=== PATIENT | male | born 1960 | race Caucasian/White ===

== ENCOUNTER 2025-05-13 10:46 | Emergency (ER) | payer BC, SELFPAY ==
[2025-05-13 10:50] VITALS: BP 150/78; PULSE 71; RESP 12; TEMP 36.9; O2SAT 98
--- NOTE | 2025-05-13 11:15 | DI.RAD_ITS ---
Exam(s) XR RIBS RT PA CHEST 3V EXAM: XR RIBS RT PA CHEST 3V CLINICAL HISTORY: R. lower rib injury TECHNIQUE: 2D digital imaging was performed.Five images were obtained. COMPARISON: No exams were available for comparison FINDINGS: MEDIASTINUM: Normal. HEART: Normal. PULMONARY VASCULATURE: Normal. LUNGS: Clear. PLEURAL SPACE: No pleural effusion or pneumothorax. BONE:Normal. RIGHT RIBS: There is an oblique lucency through the posterior aspect of the 11th rib (series 3, image 1). It is seen on the single image. Nondisplaced fracture cannot be excluded. OTHER FINDINGS:Normal. IMPRESSION: 1. No acute pulmonary findings. 2. Question of a nondisplaced fracture involving the posterior aspect of the right 11th rib. 3. No pneumothorax or pleural effusion is present. DATA REPOSITORY: RADIATION DOSE DELIVERED:
--- NOTE | 2025-05-13 11:25 | W.ED.GENAD ---
Discharge Plan Disposition Patient Disposition: Home Condition: Stable Discharge Details Clinical Impression: Fracture of right eleventh rib Primary Care Provider: Val,Local ED Provider: Fern Haque Home Meds and New Rx's Prescriptions: New oxycodone 5 mg tablet 5 mg PO Q8H PRNQty: 10 0RF No Action atorvastatin [Lipitor] 40 mg tablet 40 mg PO DAILY varenicline tartrate [Chantix Continuing Month Box] 1 mg tablet 1 mg PO BID Discharge Instructions Instructions: Rib Fracture or Bruised Rib ED Additional Instructions: You were seen in the emergency department today for evaluation of a rib injury and were found to have a nondisplaced hairline fracture of your right 11th rib. In our department you had a full physical examination performed, and had x-ray imaging that was otherwise reassuring with no evidence of displaced rib fractures or injury to your lung. We discussed use of your incentive spirometer to help open up your lungs fully, as well as using a pillow to brace or splint your chest during coughing, laughing, or sneezing. Please use therapeutic dosing of Tylenol (acetaminophen) & Advil (ibuprofen) in an alternating fashion as follows: Take 1000mg of Tylenol every 6 hours without missing doses- that is 4 times per day. [place] in between the Tylenol doses, take 600mg of Advil also on a 6 hour schedule, that is also 4 times per day. With this strategy, you will be taking something for fever/pain as often as every 3 hours. The daily maximum dosing of Tylenol is 4000mg, and the daily maximum dosing of Advil is 2400mg. Please note that some common cold medications & prescription pain medications may contain acetaminophen and you need to read OTC drug labels and factor that in to maximum daily doses. You should purchase lidocaine patches [id number] and use them in the area of maximal pain. You wear them for 12 hours at a time, and then take them off for 12 hours to allow the skin to rest. I have also provided you with a short prescription of stronger pain medications to use for severe pain that does not respond to all of the medications noted above. Please use caution when driving or operating machinery as this medication can cause drowsiness. Please follow-up with your primary care provider in the next few days to discuss this visit and any symptoms that change, worsen, or persist. Thank you for allowing us to be part of your care. Stand Alone Forms: Work Release Discharge Data Discharge Date/Time-TO BE ENTERED AT DEPARTURE: 05/13/25 13:21 HPI General Mode of arrival: ambulatory. Date/Time Provider Initiated Documentation: 05/13/25 10:53. Limitations to Documentation: no limitations. Information obtained by: patient, family and old records reviewed. HPI Narrative: This is a 64-year-old male patient without significant past medical history presenting for evaluation of right rib injury. The patient was in his normal state of health yesterday, had gotten his son a gift and the son gave him a big bear hug, lifting him off the ground. He felt a pop in his right sided chest wall, and immediately had pain in that area. It radiates around towards his back, and is worse with cough, laughing, and deep breath. He feels most comfortable standing and movements, laying down or putting pressure on it makes it worse. Prior to this event he was in his normal state of health. He took Tylenol and ibuprofen last night, nothing today. Related Data Home Medications ?Medication ?Instructions ?Recorded ?Confirmed atorvastatin 40 mg tablet (Lipitor) 40 mg PO DAILY 05/13/25 05/13/25 oxycodone 5 mg tablet 5 mg PO Q8H PRN #10 tabs 05/13/25 varenicline tartrate 1 mg tablet 1 mg PO BID 05/13/25 05/13/25 (Chantix Continuing Month Box) Previous Rx's ?Medication ?Instructions ?Recorded oxycodone 5 mg tablet 5 mg PO Q8H PRN #10 tabs 05/13/25 Allergies Allergy/AdvReac Type Severity Reaction Status Date / Time Sulfa (Sulfonamide Allergy Intermediate Unknown Verified 05/13/25 10:53 Antibiotics) General Stated Complaint: Chest/Rib NIRU: 4 Exam Narrative Exam Narrative: Gen: Awake and alert, in no apparent distress HEENT: Non-icteric sclera Neck: Supple Lungs: No apparent respiratory distress, normal respiratory effort. Lung sounds clear and equal bilaterally the respirations are shallow CV: Appears well perfused, heart with regular rate and rhythm, no murmurs auscultated, strong distal pulses. Right lateral chest wall is tender to palpation at the inferior costal margin without external signs of bruising or deformity Abdomen: Non-distended, soft, nontender to palpation without rigidity, rebound, or guarding MSK: Moves 4 extremities without apparent limitation in ROM Skin: Visualized skin without rashes, cyanosis. Neuro: Normal Gait, no obvious focal deficits or facial asymmetry. Speaks in full, clear sentences. Psych: Appropriate for situation. Course Vital Signs Vital signs: Vital Signs Temperature 36.9 C 05/13/25 10:50 Pulse 71 05/13/25 10:50 Respiratory Rate 12 05/13/25 10:50 Blood Pressure 150/78 H 05/13/25 10:50 Pulse Oximetry 98 05/13/25 10:50 Temperature 36.9 C 05/13/25 10:50 Temperature Source Oral 05/13/25 10:50 Pulse 71 05/13/25 10:50 Respiratory Rate 12 05/13/25 10:50 Blood Pressure 150/78 H 05/13/25 10:50 Blood Pressure Position Sitting 05/13/25 10:50 Pulse Oximetry 98 05/13/25 10:50 Oxygen Delivery Method Room Air 05/13/25 10:50 Oxygen Flow Rate 0 05/13/25 10:50 Medical Decision Making This is a 64-year-old male patient presenting for evaluation of right chest wall pain. Differential includes but is not limited to rib fracture, rib contusion, certainly considered underlying pulmonary contusion, pneumothorax. The onset with traumatic event and reproducibility reassures me against ACS and cardiac abnormalities. The duration of time since onset of symptoms is also reassuring against development of pneumonia. -We will provide the patient with Tylenol, ibuprofen, and a Lidoderm patch. I will obtain a chest x-ray to evaluate the ribs for injury. - Chest x-ray reviewed by myself, radiology notes a lucency in the right 11th rib, which likely represents nondisplaced fracture given this patient's mechanism of injury and location of pain. No underlying lung trauma is noted. The patient reports some improvement in his pain with the multimodal pain management, and was able to pull 1000 mL on incentive spirometry. I counseled him on multimodal pain management and provided him with a short course of oxycodone for breakthrough pain. At this time, the patient has had a full medical evaluation and is safe for discharge to home. They are hemodynamically stable, ambulatory, and tolerating PO. They are understanding of the follow-up plan and return precautions. They left our facility without incident. Fern Haque MD [facility] All Active Problems (Updated 05/13/25 @ 13:11 by Fern Haque MD) Fracture of right eleventh rib (Acute) Social History Smoking/Tobacco Use Status: Current every day Tobacco Type: cigarettes Smoking risk assessment performed?: Yes Alcohol Intake: current Alcohol Intake frequency: holidays/special occasions only Drug use: Never Substance use type: does not use Housing: house Do you feel safe at home: Yes Do you feel safe in your relationship?: Yes
[2025-05-13] MEDS: Ibuprofen 600 MG TAB PO (11:56)
[2025-05-13] MEDS: Acetaminophen 500 MG TAB 1000 MG PO (11:56)
[2025-05-13] MEDS: Lidocaine 5% Patch 1 PATCH TP (12:22)
[2025-05-13 13:16] VITALS: BP 146/78
== END 2025-05-13 13:21 | disposition home or self-care (01) ==
PROVIDERS: Emergency Provider Emergency Medicine
DX: S22.31XA Fracture of one rib, right side, initial encounter for closed fracture (principal); X58.XXXA Exposure to other specified factors, initial encounter; Y93.89 Activity, other specified; Y92.89 Other specified places as the place of occurrence of the external cause; F17.210 Nicotine dependence, cigarettes, uncomplicated
CPT/HCPCS: 99283; 71046; 71100